=== PATIENT | female | born 1975 | race Caucasian/White ===

== ENCOUNTER 2017-01-21 19:21 | Emergency (ER) | payer OTHER ==
[~2017-01-21] VITALS: Ht 170.2 cm; Wt 65.8 kg
[~2017-01-21 19:21] MED LIST: BACLOFEN10 MG PO; BACTRIM DS TABL1 TA1 PO; DITROPAN PO; MACROBID100 M1 PO; NEURONTIN600 MG PO
== END 2017-01-21 21:16 | disposition home or self-care (01) ==
LOC: SED 19:21
DX: S61.307A Unspecified open wound of left little finger with damage to nail, initial encounter (principal); F17.210 Nicotine dependence, cigarettes, uncomplicated; Z79.899 Other long term (current) drug therapy; W45.8XXA Other foreign body or object entering through skin, initial encounter; Y92.89 Other specified places as the place of occurrence of the external cause
CPT/HCPCS: 29130; 99283